=== PATIENT | female | born 1970 | race Caucasian/White ===

== ENCOUNTER → 2024-04-11 19:55 | Outpatient (REF) | payer BC, SELFPAY | LOC: WDC 19:55 | PROVIDERS: ATTENDING PHYSICIAN Obstetrics & Gynecology; FAMILY PHYSICIAN Nurse Practitioner Family | DX: Z12.31 Encounter for screening mammogram for malignant neoplasm of breast (principal) | CPT/HCPCS: 77063; 77067 ==

== ENCOUNTER → 2025-05-17 06:38 | Outpatient (REF) | payer BC, SELFPAY | LOC: WDC 06:38 | PROVIDERS: ATTENDING PHYSICIAN Obstetrics & Gynecology; FAMILY PHYSICIAN Nurse Practitioner Family | DX: Z12.31 Encounter for screening mammogram for malignant neoplasm of breast (principal) | CPT/HCPCS: 77063; 77067 ==